=== PATIENT | male | born 1945 | race Caucasian/White ===

== ENCOUNTER 2018-06-19 15:19 | Emergency (ER) | payer MEDICARE, OTHER ==
[~2018-06-19] VITALS: Ht 175.3 cm; Wt 90.7 kg
--- NOTE | 2018-06-19 15:23 | NUR ---
pt taken in wheelchair to er bed 11
[2018-06-19 15:28] VITALS: BP 106/43
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
--- NOTE | 2018-06-19 15:35 | NUR ---
PT UP TO DATE WITH TDAP VACCINATION
[2018-06-19] MEDS ORDERED: KETOROLAC 30 MG/ML VIAL IVP ONE (15:40)
[2018-06-19] MEDS ORDERED: NACL 0.9% 1,000 ML IV ONE (15:40)
[2018-06-19] MEDS ORDERED: KETOROLAC 15 MG/ML VIAL ONE (15:46)
[2018-06-19] MEDS ORDERED: LIDOCAINE 1% 500 MG/50 ML VIAL INJ SCH (15:55)
[2018-06-19] MEDS ORDERED: LIDOCAINE MPF 1% 5mL VIAL ONE ×3 (16:07→17:25)
--- NOTE | 2018-06-19 16:22 | NUR ---
ANIMAL BITE REPORTING FORM FAXED TO [facility] ([facility])
[2018-06-19] MEDS ORDERED: fentaNYL 0.05 MG/ML VIAL IVP ONE (16:40)
--- NOTE | 2018-06-19 17:22 | NUR ---
PER DR FELIX, 5 ML LIDOCAIN X 3 GIVEN BY DURING PROCEDURE Addendum: 06/19/18 at 1723 by MEDARO 5ML 1% LIDOCAIN X3 GIVEN BY DR FELIX DURING PROCEDURE
[2018-06-19] MEDS ORDERED: BACITRACIN OINT 500 UNITS/GM PKT TP ONE ×2 (17:53→17:54)
[2018-06-19 18:20] VITALS: BP 121/88
--- NOTE | 2018-06-19 18:20 | NUR ---
Patient discharged with v/s stable. Written and verbal after care instructions given and explained. Patient alert, oriented and verbalized understanding of instructions. Ambulatory with steady gait. All questions addressed prior to discharge. ID band removed. Patient advised to follow up with PMD. Rx of [place], Ibuprofen, Colace, Augmentin given. Patient educated on indication of medication including possible reaction and side effects. Opportunity to ask questions provided and answered.
== END 2018-06-19 18:20 | disposition home or self-care (01) ==
LOC: MED 15:19
DX: S51.812A Laceration without foreign body of left forearm, initial encounter (principal); S61.511A Laceration without foreign body of right wrist, initial encounter; S61.011A Laceration without foreign body of right thumb without damage to nail, initial encounter; S61.210A Laceration without foreign body of right index finger without damage to nail, initial encounter; I10 Essential (primary) hypertension; Z88.1 Allergy status to other antibiotic agents; W54.0XXA Bitten by dog, initial encounter; Y93.89 Activity, other specified; Y92.89 Other specified places as the place of occurrence of the external cause; Y99.8 Other external cause status
CPT/HCPCS: 12005; 73090; 73130; 93005; 96374; 96375; 99284; J1885; J2001; J3010; J7030; Q0092; 99283